=== PATIENT | female | born 1935 | race Caucasian/White ===

== ENCOUNTER 2016-11-13 04:58 | Inpatient (IN) ==
[2016-11-08 12:36] LABS: Basophils # (Auto) 0 K/mcL (0.0-0.3); Basophils % (Auto) 0.6 % (0.0-2.0); Eosinophils # (Auto) 0.1 K/mcL (0.0-0.7); Eosinophils % (Auto) 1.3 % (0.0-7.0); Granulocytes % (Auto) 69.6 % (38.0-78.0); Lymphocytes # (Auto) 1.1 K/mcL (1.5-4.8); Lymphocytes % (Auto) 18.1 % (15.5-49.0); Mean Cell Volume 88.9 fL (80.0-100.0); Mean Corpuscular HGB Conc 33.8 g/dL (31.0-36.0); Mean Corpuscular Hemoglobin 30.1 pg (26.0-34.0); Monocytes # (Auto) 0.6 K/mcL (0.1-0.9); Monocytes % (Auto) 10.4 % (1.0-12.0); Platelet Count 355 K/mcL (140-440); RBC 3.77 M/mcL (4.00-5.20); Red Cell Distribution Width 14.9 % (11.5-14.5)
[2016-11-08 13:53] LABS: Appearance,Urine HAZY; Bacteria,Urine 0 /hpf (0); Bilirubin,Urine NEG (NEG); Color,Urine YELLOW; Glucose,Urine (UA) NEGATIVE (NEG); Leukocyte Esterase,Urine 500 /uL (NEG); Mucus,Urine FEW /hpf (0); Nitrate,Urine NEG (NEG); Protein,Urine NEG (NEG); Specific Gravity,Urine 1.014 (1.000-1.035); Urine Blood NEG mg/dL (<0.03); Urine RBC 1 /hpf (0-1); Urine Squamous Epithelial Cell 7 /hpf (0-4); Urine Transitional Epi Cells 3 /hpf (0-2); Urine WBC 31 /hpf (0-4); Urobilinogen,Urine NEG (NEG)
[2016-11-13] MEDS ORDERED: ceFAZolin 1 GM VIAL IV SCH (05:00)
[2016-11-13] MEDS ORDERED: PREGABALIN 75 MG CAPSULE PO SCH (05:00)
[2016-11-13] MEDS ORDERED: oxyCODONE 10 MG TAB.ER.12H PO SCH (05:00)
[2016-11-13] MEDS ORDERED: CELECOXIB 200 MG CAPSULE PO SCH (05:00)
[2016-11-13] MEDS ORDERED: ACETAMINOPHEN 500 MG TABLET PO SCH (05:00)
[2016-11-13] MEDS ORDERED: GENTAMICIN PER PHARMACY IV ONE (06:36)
[2016-11-13] MEDS ORDERED: GENTAMICIN SULFATE IV ONE (07:00)
[2016-11-13] MEDS ORDERED: SODIUM CHLORIDE 0.9% IV ONE (07:00)
[2016-11-13] MEDS ORDERED: GENTAMICIN SULFATE 800 MG/20 ML VIAL IR ONE (07:19)
[2016-11-13] MEDS ORDERED: TRANEXAMIC ACID 1,000 MG/10 ML VIAL IV ONE ×2 (07:40→08:56)
[2016-11-13] MEDS ORDERED: PHENYLEPHRINE 10 MG/ML VIAL IV ONE (07:40)
[2016-11-13] MEDS ORDERED: MIDAZOLAM 5 MG/5 ML VIAL IV ONE (07:40)
[2016-11-13] MEDS ORDERED: LIDOCAINE HCL/PF 100 MG/5 ML SYRINGE IV ONE (07:40)
[2016-11-13] MEDS ORDERED: ONDANSETRON 4 MG/2 ML VIAL IV ONE (07:40)
[2016-11-13] MEDS ORDERED: GLYCOPYRROLATE 0.2 MG/ML VIAL IV ONE (07:40)
[2016-11-13] MEDS ORDERED: PROPOFOL 200 MG/20 ML VIAL IV ONE (07:40)
[2016-11-13] MEDS ORDERED: fentaNYL 250 MCG/5 ML VIAL IV ONE (07:40)
[2016-11-13] MEDS ORDERED: KETAMINE 100 MG/ML ML IV ONE (07:40)
[2016-11-13] MEDS ORDERED: DEXAMETHASONE 10 MG/ML VIAL IV ONE (07:40)
[2016-11-13] MEDS ORDERED: BENZOCAINE/MENTHOL 1 LOZENGE PO PRN ×2 (08:41→08:56)
[2016-11-13] MEDS ORDERED: HYDROmorphone 2 MG/ML SYRINGE IV PRN ×2 (08:41→08:56)
[2016-11-13] MEDS ORDERED: MEPERIDINE 25 MG/ML SYRINGE IV PRN (08:41)
[2016-11-13] MEDS ORDERED: IPRATROPIUM/ALBUTEROL 3 ML AMPUL.NEB NEB PRN (08:41)
[2016-11-13] MEDS ORDERED: fentaNYL 100 MCG/2 ML VIAL IV PRN (08:41)
[2016-11-13] MEDS ORDERED: METHOCARBAMOL 1,000 MG/10 ML VIAL IV PRN (08:41)
[2016-11-13] MEDS ORDERED: PROMETHAZINE 25 MG/ML VIAL IV PRN (08:41)
[2016-11-13] MEDS ORDERED: LACTATED RINGERS 1,000 ML IV SCH (08:45)
[2016-11-13] MEDS ORDERED: ACETAMINOPHEN 325 MG TABLET PO PRN (08:56)
[2016-11-13] MEDS ORDERED: TEMAZEPAM 15 MG CAPSULE PO PRN (08:56)
[2016-11-13] MEDS ORDERED: KETOROLAC 15 MG/ML VIAL IV PRN (08:56)
[2016-11-13] MEDS ORDERED: BISACODYL 10 MG SUPP.RECT PR PRN (08:56)
[2016-11-13] MEDS ORDERED: ONDANSETRON 4 MG/2 ML VIAL IV PRN (08:56)
[2016-11-13] MEDS ORDERED: POLYETHYLENE GLYCOL 3350 17 GM PACKET PO PRN (08:56)
[2016-11-13] MEDS ORDERED: FLEETS ADULT ENEMA PR PRN (08:56)
[2016-11-13] MEDS ORDERED: MAGNESIUM HYDROXIDE 30 ML ORAL.SUSP PO PRN (08:56)
--- NOTE | 2016-11-13 08:56 | Brief Operative Note ---
Date of procedure: 11/13/16 Pre-op diagnosis: Right hip djd Post-op diagnosis: same Procedure: Right total hip cemented Grafts/Implants: Yes Anesthesia: GETA Surgeon: Sreedhar Marcos Estimated blood loss (cc): 20
[2016-11-13] MEDS: DOCUSATE SODIUM 100 MG CAPSULE PO SCH ×2 (09:00→20:28)
[2016-11-13] MEDS: VITAMIN D3 1,000 UNIT TABLET PO SCH (09:00)
[2016-11-13] MEDS: amLODIPine 5 MG TABLET PO SCH (09:00)
[2016-11-13] MEDS ORDERED: ASPIRIN 81 MG TAB.CHEW CHEWED SCH (09:00)
[2016-11-13] MEDS: VIT A,C & E/LUTEIN/MINERALS TABLET PO SCH (09:00)
[2016-11-13] MEDS: ASPIRIN 325 MG ENTERIC COATED TABLET PO SCH ×2 (09:00→20:28)
[2016-11-13] MEDS ORDERED: ALBUTEROL SULFATE 1 PUFF INHALER INH PRN (09:04)
--- NOTE | 2016-11-13 09:26 | XRay Report ---
CLINICAL INFORMATION: Right hip replacement TECHNIQUE: AP intraoperative pelvis COMPARISON: None. FINDINGS: Single AP portable pelvis and in the operating room. Examination was performed during right total hip arthroplasty. IMPRESSION: Right hip replacement Interpreted and Authenticated by: Aubrey Miller 11/13/16
--- NOTE | 2016-11-13 09:46 | XRay Report ---
CLINICAL INFORMATION: Status post right hip replacement TECHNIQUE: AP pelvis. AP and crosstable lateral right hip COMPARISON: None. FINDINGS: Status post right total hip arthroplasty. Prosthetic complements are in anatomic positions. Multiple small surgical clips are identified overlying the left hip. Pelvis is negative. No fracture. No lytic lesion. Sacrum is negative. 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
[2016-11-13] MEDS: 0.45 % SODIUM CHLORIDE 1,000 ML IV SCH ×2 (10:05→20:24)
[2016-11-13] MEDS: HYDROcodone/APAP 10/325MG TABLET PO PRN ×2 (12:56→23:16)
[2016-11-13] MEDS: 0.9 % SODIUM CHLORIDE 10 ML SYRINGE IV SCH ×2 (14:05→20:31)
[2016-11-13] MEDS: IPRATROPIUM/ALBUTEROL SULFATE 1 PUFF INHALER INH SCH ×3 (15:12→20:31)
[2016-11-13] MEDS: ceFAZolin 1 GM VIAL IV SCH ×2 (15:19→23:18)
[2016-11-13] MEDS: SENNOSIDES 1 TABLET PO SCH (20:28)
[2016-11-13] MEDS: MONTELUKAST 10 MG TABLET PO SCH (20:28)
[2016-11-13] MEDS: ATORVASTATIN 20 MG TABLET PO SCH (20:28)
[2016-11-13] MEDS: FLUTICASONE/SALMETEROL 250/50 INHALER #14 INH SCH (20:31)
[2016-11-14] MEDS: 0.45 % SODIUM CHLORIDE 1,000 ML IV SCH (05:36)
--- NOTE | 2016-11-14 08:04 | Orthopedic Progress Note ---
Subjective Patient information: Note initiated : 11/14/16 at 8:04 am Service Date, if different from initiated Date: [] Patient: Viktoria Chou 81 y/o F admitted on 11/13/16 for Right Total Hip Arthroplasty. Chief Complaint: [minimal pain] Objective Vital signs: Vital Signs Temp Pulse Resp BP Pulse Ox 11/14/16 07:31 98 11/14/16 07:03 98.5 F 18 111/52 97 11/14/16 05:28 97 11/14/16 03:34 98.2 F 69 16 107/62 96 11/14/16 01:15 94 11/13/16 23:32 98.6 F 69 16 104/54 97 11/13/16 21:00 94 11/13/16 19:47 98.4 F 73 16 117/50 96 11/13/16 19:00 96 11/13/16 17:00 97 11/13/16 15:42 97.5 F 18 109/63 97 11/13/16 15:00 97 11/13/16 13:00 97 11/13/16 12:00 97.9 F 16 120/53 98 11/13/16 11:30 97.9 F 16 126/79 96 11/13/16 11:00 16 137/77 98 11/13/16 10:45 97.9 F 16 123/77 96 11/13/16 10:30 18 132/65 96 11/13/16 10:15 18 134/68 95 11/13/16 10:00 97.6 F 16 128/55 94 11/13/16 09:43 97.2 F 78 20 140/70 93 11/13/16 09:38 97.2 F 78 20 148/73 93 11/13/16 09:33 97.2 F 78 20 137/64 93 11/13/16 09:28 97.2 F 78 20 136/77 98 11/13/16 09:23 97.5 F 72 20 129/70 98 11/13/16 09:18 97.5 F 72 20 141/66 98 11/13/16 09:13 97.5 F 72 20 140/44 98 Intake and Output 11/13/16 11/14/16 11/14/16 21:59 05:59 13:59 Intake Total 640 / 640 620 / 620 Output Total 700 / 700 625 / 625 Balance -60 / -60 -5 / -5 Intake: Oral 640 / 640 620 / 620 Output: Urine Catheter Amount 700 / 700 625 / 625 Other: Meal Nourishment/Supplement Percent of Meal Consumed 100% Feeding Ability Independent Weight 176 lb Intake & Output: Intake & Output 11/13/16 11/14/16 11/14/16 21:59 05:59 13:59 Intake Total 640 / 640 620 / 620 Output Total 700 / 700 625 / 625 Balance -60 / -60 -5 -5 Weight 176 lb Intake: Oral 640 / 640 620 / 620 Output: Urine Catheter Amount 700 / 700 625 / 625 Other: Meal Nourishment/Supplement Percent of Meal Consumed 100% Feeding Ability Independent Incision: Yes healing Incision clean and dry: Yes Dressing: Yes clean Weight bearing status: full Neurological exam IM: Yes oriented X3, Yes neurovascular intact Extremities exam IM: Yes Foot pink and warm, Yes neurovascular intact - Labs CBC & BMP: 11/14/16 05:00 Labs: Orthopedic Labs 11/08/16 11:24 PT 12.3 INR 0.9 APTT 32 11/14/16 11/08/16 05:00 11:24 Hgb 11.3 L Hct 27.1 L 33.5 L
--- NOTE | 2016-11-14 08:07 | Discharge Summary ---
Ortho Discharge - [facility] - Patient Instructions Diet: Regular Diet Activity: activity as tolerated, weight bearing as tolerated Total Knee Protocol: For Total Knee: Start ROM SU with stationary bike or rocking chair. Work on gaining full extension of knee. Posterior dislocation precautions provided. Hip abductor strengthening and gait training instructions provided. Apply Cryocuff as instructed. Dressing Care: Aquacel Ag - leave on for 5 days Patient Education: Total Hip Replacement (DC) Additional Instructions: Discharge Instructions: Do the exercises at home that physical therapy gave you. Take your prescription, photo ID, insurance cards, and current medication list with you to your first physical therapy appointment. Take your prescription to crop picker any medication or equipment (such as walker, crutches, toilet riser or C.P.M.) Wear comfortable clothing for your physical therapy. Weight bearing as tolerated. If you have the Aquacel Ag dressing, leave in place for 7 days then remove. If dressing becomes soiled (turns black), remove and use gauze 4x4 dressing and silvasorb ointment and change daily. Keep incision clean and dry. If you have Dermabond (a dressing with a mesh-like appearance), leave open to air. You may start showering on post op day #2. The Dermabond dressing can get wet, do not scrub dressing. Pat dry. To avoid constipation while taking any narcotic pain medication, take an over the counter stool softener/laxative. Use your Cryocuff or ice packs as directed, on for 20 minutes at a time throughout the day. This and elevation will help with pain and swelling. Call your physician for fevers above 100.5 or pain not controlled by medication. Your prescriptions are with your discharge information. Some medications were electronically transmitted to your pharmacy of choice. - Follow Up Plan Follow Up Appointments: Sreedhar Marcos MD [Physician] - 11/28/16 10:00 am Disposition: Home, Self-Care Prognosis: Good Rehab Potential: Good I certify that the patient requires SNF services: No Overall status at discharge: patient is progressing back to baseline - Orders For Discharge Prescriptions: Aspirin [Ecotrin] 325 mg PO BID #28 tab.ec Hydrocodone/APAP 7.5/325Mg [[place] 7.5/325Mg] 1 - 2 tab PO Q4HP PRN #60 tablet PRN Reason: Pain Additional Discharge Orders: Physical Therapy at Discharge - [facility] Location: Determined By Patient Toilet Riser Discharge Order Location: Determined By Patient Walker Location: Determined By Patient
[2016-11-14] MEDS: metFORMIN 500 MG TABLET PO SCH (08:35)
[2016-11-14] MEDS: VITAMIN D3 1,000 UNIT TABLET PO SCH (08:36)
[2016-11-14] MEDS: CALCIUM W/VIT D3 500 MG TABLET PO SCH (08:36)
[2016-11-14] MEDS: LEVOTHYROXINE 100 MCG TABLET PO SCH (08:36)
[2016-11-14] MEDS: DOCUSATE SODIUM 100 MG CAPSULE PO SCH ×2 (08:36→21:35)
[2016-11-14] MEDS: FLUTICASONE/SALMETEROL 250/50 INHALER #14 INH SCH ×2 (08:37→21:41)
[2016-11-14] MEDS: ASPIRIN 325 MG ENTERIC COATED TABLET PO SCH ×2 (08:38→21:35)
[2016-11-14] MEDS: amLODIPine 5 MG TABLET PO SCH (08:38)
[2016-11-14] MEDS: IPRATROPIUM/ALBUTEROL SULFATE 1 PUFF INHALER INH SCH ×4 (08:38→21:41)
[2016-11-14] MEDS: LOSARTAN 50 MG TABLET PO SCH (08:38)
[2016-11-14] MEDS: HYDROcodone/APAP 10/325MG TABLET PO PRN ×3 (08:39→19:13)
[2016-11-14] MEDS: VIT A,C & E/LUTEIN/MINERALS TABLET PO SCH (09:13)
[2016-11-14] MEDS: 0.9 % SODIUM CHLORIDE 10 ML SYRINGE IV SCH ×3 (16:14→21:41)
[2016-11-14] MEDS: ATORVASTATIN 20 MG TABLET PO SCH (21:35)
[2016-11-14] MEDS: SENNOSIDES 1 TABLET PO SCH (21:35)
[2016-11-14] MEDS: MONTELUKAST 10 MG TABLET PO SCH (21:35)
[2016-11-15] MEDS: HYDROcodone/APAP 10/325MG TABLET PO PRN ×3 (03:59→16:12)
[2016-11-15] MEDS: 0.9 % SODIUM CHLORIDE 10 ML SYRINGE IV SCH ×2 (04:00→12:54)
--- NOTE | 2016-11-15 06:57 | Discharge Summary ---
Ortho Discharge - [facility] - Patient Instructions Diet: Regular Diet Activity: activity as tolerated, weight bearing as tolerated Total Hip Protocol: Follow activity instructions as provided by Physical Therapy. Dressing Care: Irasemael Ag - leave on for 5 days Patient Education: Hydrocodone/Acetaminophen (By mouth), Total Hip Replacement (DC) Additional Instructions: Discharge Instructions: Patient wishes to do own physical therapy. Do the exercises at home that physical therapy gave you. If you should decide at a later date to start PT please set up and appointment with the therapist of your choice. Take your prescription, photo ID, insurance cards, and current medication list with you to your first physical therapy appointment. Take your prescription to cloth picker any medication or equipment (such as walker, crutches, toilet riser or C.P.M.) Wear comfortable clothing for your physical therapy. Weight bearing as tolerated. You have Dermabond (a dressing with a mesh-like appearance), leave open to air. You may start showering on post op day #2. The Dermabond dressing can get wet, do not scrub dressing. Pat dry. To avoid constipation while taking any narcotic pain medication, take an over the counter stool softener/laxative. Use your Cryocuff or ice packs as directed, on for 20 minutes at a time throughout the day. This and elevation will help with pain and swelling. Call your physician for fevers above 100.5 or pain not controlled by medication. Your prescriptions are with your discharge information. Some medications were electronically transmitted to your pharmacy of choice. - Follow Up Plan Follow Up Appointments: Sreedhar Marcos MD [Physician] - 11/28/16 10:00 am Disposition: Home, Self-Care Prognosis: Good Rehab Potential: Good I certify that the patient requires SNF services: No Overall status at discharge: patient is progressing back to baseline - Orders For Discharge Prescriptions: Aspirin [Ecotrin] 325 mg PO BID #28 tab.ec Hydrocodone/APAP 7.5/325Mg [[place] 7.5/325Mg] 1 - 2 tab PO Q4HP PRN #60 tablet PRN Reason: Pain Additional Discharge Orders: Physical Therapy at Discharge - [facility] Location: Determined By Patient Toilet Riser Discharge Order Location: Determined By Patient Walker Location: Determined By Patient
--- NOTE | 2016-11-15 06:58 | Orthopedic Progress Note ---
Subjective Patient information: Note initiated : 11/15/16 at 6:57 am Service Date, if different from initiated Date: [] Patient: Viktoria Chou 81 y/o F admitted on 11/13/16 for Right Total Hip Arthroplasty. Chief Complaint: [minimal pain and no cp and no sob] Objective Vital signs: Vital Signs Temp Pulse Resp BP Pulse Ox 11/15/16 05:26 97 11/15/16 04:00 98.4 F 74 16 124/59 97 11/14/16 23:03 98.0 F 74 16 135/64 98 11/14/16 22:00 94 11/14/16 20:00 98.5 F 71 16 119/64 95 11/14/16 17:54 98 11/14/16 16:00 97.3 F 18 111/57 98 11/14/16 14:00 98 11/14/16 12:00 98 11/14/16 11:44 98.2 F 18 119/70 95 11/14/16 10:00 95 11/14/16 08:00 98 11/14/16 07:31 98 11/14/16 07:03 98.5 F 18 111/52 97 Intake and Output 11/14/16 11/15/16 11/15/16 21:59 05:59 13:59 Intake Total 500 / 500 350 / 350 Output Total 375 / 375 900 / 900 400 / 400 Balance 125 / 125 -550 / -550 -400 / -400 Intake: Oral 500 / 500 350 / 350 Output: Void Amount 375 / 375 900 / 900 400 / 400 Other: Meal Dinner Percent of Meal Consumed 100% # Voids 1 Weight 176 lb 14.4 oz Intake & Output: Intake & Output 11/14/16 11/15/16 11/15/16 21:59 05:59 13:59 Intake Total 500 / 500 350 / 350 Output Total 375 / 375 900 / 900 400 / 400 Balance 125 / 125 -550 / -550 -400 / -400 Weight 176 lb 14.4 oz Intake: Oral 500 / 500 350 / 350 Output: Void Amount 375 / 375 900 / 900 400 / 400 Other: Meal Dinner Percent of Meal Consumed 100% # Voids 1 Incision: Yes healing Incision clean and dry: Yes Dressing: Yes clean Weight bearing status: full Neurological exam IM: Yes oriented X3, Yes neurovascular intact Extremities exam IM: Yes Foot pink and warm (dc home today), Yes neurovascular intact - Labs CBC & BMP: 11/14/16 05:00 Labs: Orthopedic Labs 11/08/16 11:24 PT 12.3 INR 0.9 APTT 32 11/14/16 11/08/16 05:00 11:24 Hgb 11.3 L Hct 27.1 L 33.5 L
[2016-11-15] MEDS: VIT A,C & E/LUTEIN/MINERALS TABLET PO SCH (08:28)
[2016-11-15] MEDS: ASPIRIN 325 MG ENTERIC COATED TABLET PO SCH (08:28)
[2016-11-15] MEDS: FLUTICASONE/SALMETEROL 250/50 INHALER #14 INH SCH (08:28)
[2016-11-15] MEDS: DOCUSATE SODIUM 100 MG CAPSULE PO SCH (08:28)
[2016-11-15] MEDS: metFORMIN 500 MG TABLET PO SCH (08:29)
[2016-11-15] MEDS: LOSARTAN 50 MG TABLET PO SCH (08:29)
[2016-11-15] MEDS: VITAMIN D3 1,000 UNIT TABLET PO SCH (08:29)
[2016-11-15] MEDS: CALCIUM W/VIT D3 500 MG TABLET PO SCH (08:29)
[2016-11-15] MEDS: LEVOTHYROXINE 100 MCG TABLET PO SCH (08:29)
[2016-11-15] MEDS: amLODIPine 5 MG TABLET PO SCH (08:29)
[2016-11-15] MEDS: IPRATROPIUM/ALBUTEROL SULFATE 1 PUFF INHALER INH SCH ×2 (08:30→12:54)
[2016-11-19] MEDS ORDERED: ALENDRONATE SODIUM 70 MG TABLET PO SCH (07:30)
== END 2016-11-15 16:55 | disposition home or self-care (01) | DRG 470 ==
LOC: MEDSUR 04:58
PROVIDERS: ADMIT Orthopaedic Surgery; ATTEND Orthopaedic Surgery